=== PATIENT | female | born 1990 | race Caucasian/White ===

== ENCOUNTER 2021-11-17 04:16 | Emergency (ER) | payer BC, OTHER ==
[~2021-11-17] VITALS: Ht 162 cm; Wt 108.0 kg
[2021-11-17 04:30] VITALS: BP 95/68
--- OUTSIDE RECORDS SUMMARY | 2021-11-17 04:36 | XMS REPORT | Clinical Summary ---
Author Author [facility] Organization [facility] Address Unknown Phone Unavailable Care Team Providers Care Manual Winder Name Role Phone Brien Villalobos MD PCP Allergies Comments Active Allergy Reactions Severity Noted Date Other reaction(s): rash, hives Amoxicillin-Pot Not specified 10/11/2013 Clavulanate Cefaclor Hives 10/12/2013 Cefpodoxime Hives 10/12/2013 Other reaction(s): rash, hives Cephalexin 08/06/2020 Chlorothiazide Hives 10/12/2013 Sulfa (Sulfonamide Diarrhea, High 03/04/2012 Antibiotics) Hives Other reaction(s): rash, hives Sulfamethoxazole-Trimetho Hives 10/12/2013 prim Medications End Date Status Medication Sig Dispensed Refills Start Date Active levothyroxine (SYNTHROID, TAKE 1 TABLET 90 tablet 1 LEVOTHROID) 75 MCG tablet BY MOUTH 9 DAILY Active sertraline (ZOLOFT) 50 mg T1TD 30 tablet 1 tablet 0 Active docusate sodium (COLACE) Take 1 60 capsule 0 1 100 MG capsule (100 1 capsuleIndications: mg total) by constipation mouth 2 (two) times a day. to prevent constipation Active meloxicam (MOBIC) 7.5 MG Take 1 tablet 30 tablet 0 tablet (7.5 mg 1 total) by mouth daily. to help with pain and swelling after surgery Active ergocalciferol (VITAMIN Take 1 4 capsule 0 D2) 1,250 mcg (50,000 capsule 1 unit) capsuleIndications: (50,000 Units vitamin D deficiency total) by mouth weekly. Active ascorbic acid (VITAMIN C) Take 1 tablet 60 tablet 0 500 mg tablet (500 mg 1 total) by mouth daily. Active metoclopramide (REGLAN) Take 1 tablet 40 tablet 0 10 MG tablet (10 mg total) 1 by mouth 4 (four) times a day as needed (for post-operativ e nausea). 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 Active buPROPion (WELLBUTRIN XL) 1 tablet in 0 300 MG XL 24 hr tablet the morning Active fluconazole (DIFLUCAN) Take 1 tablet 0 01/25/ 02 150 MG tablet by mouth. 1 Active trazodone (DESYREL) 50 MG 1 tablet at 0 01/07 tablet bedtime as 1 needed Active tiZANidine (ZANAFLEX) 4 Take 1 tablet 40 tablet 0 MG tablet (4 mg total) 2 by mouth every 6 (six) hours as needed. Active gabapentin (NEURONTIN) Take 1 30 capsule 0 100 MG capsule (100 2 capsuleIndications: mg total) by postoperative acute pain mouth at bedtime. to help with nerve pain after surgery Active HYDROcodone-acetaminophen Take 1 tablet 40 tablet 0 (NORCO) 5-325 mg per by mouth 2 tabletIndications: every 4 Post-op pain (four) hours as needed for pain. Max Daily Dose: 6 tablets 10/22/2021 Discontinued (Reorder) tiZANidine (ZANAFLEX) 4 Take 1 tablet 40 tablet 0 MG tablet (4 mg total) 1 by mouth every 6 (six) hours as needed. 11/12/2021 Discontinued (Reorder) HYDROcodone-acetaminophen Take 1-2 40 tablet 0 (NORCO) 5-325 mg per tablets by 1 tabletIndications: mouth every 4 Post-op pain (four) hours as needed for pain. Max Daily Dose: 12 tablets 11/12/2021 Discontinued (Reorder) tiZANidine (ZANAFLEX) 4 Take 1 tablet 40 tablet 0 MG tablet (4 mg total) 1 by mouth every 6 (six) hours as needed. 11/12/2021 Discontinued (Reorder) gabapentin (NEURONTIN) Take 1 14 capsule 0 100 MG capsule (100 1 capsuleIndications: mg total) by postoperative acute pain mouth at bedtime. 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 Resolved Problems Problem Noted Date Resolved Date 03/08/2017 02/16/2018 Encounters Care Team Description Date Type Specialty Kamila Colmenares PA-C Post-op pain (Primary Dx) 11/12/2021 Office Visit Orthopedic Surgery Kamila Colmenares PA-C Medication Refill 11/12/2021 Refill Orthopedic Surgery Titus Benítez MD 11/05/2021 Documentation Orthopedic Surgery Titus Benítez MD 11/05/2021 Telephone Orthopedic Surgery Titus Benítez MD 10/28/2021 Outside Surgery Orthopedic Surgery Titus Benítez MD 10/28/2021 Documentation Orthopedic Surgery Emmie Chen, CLINIC PHYSICIAN Medication Refill 10/22/2021 Refill Orthopedic Surgery Emmie Chen CLINIC PHYSICIAN post op medications 10/22/2021 Telephone Orthopedic Surgery Titus Benítez MD Osteoarthritis of right ankle and foot ( Primary Dx); Right ankle pain, unspecified chronicity 09/03/2021 Office Visit Orthopedic Surgery Titus Benítez MD 09/02/2021 Telephone Orthopedic Surgery from Last 3 Months Immunizations Name Administration Dates Next Due Influenza QIV (IM) 08/19/2019 Influenza, seasonal, 10/12/2013 injectable, preservatie free (IIV3). 15 = Influenza TIV Social History Date Tobacco Use Types Packs/Day Years Used Never Smoker Smokeless Tobacco: Never Used Tobacco Cessation: Counseling Given: No Comments Alcohol Use Standard Drinks/Week social Yes 0 (1 standard drink = 0.6 o z pure alcohol) Alcohol Habits Answer Date Recorded How often do you have a drink containing alcohol? No t asked How many drinks containing alcohol do you have on No t asked a typical day when you are drinking? How often do you have six or more drinks on one Not asked occasion? Comment: social 12/31/2017 Sex Assigned at Date Recorded Not on file Last Filed Vital Signs Reading Time Taken Comments Vital Sign 122/78 09/23/2019 1:18 PM TERMITE EXTERMINATOR HELPER Blood Pressure 101 04/30/2021 9:53 AM CDT Pulse 36.3 C (97.3 F) 11/12/2021 11:34 AM TERMITE EXTERMINATOR HELPER Temperature 16 09/03/2021 3:07 PM CDT Respiratory Rate 98% 04/30/2021 9:53 AM CDT Oxygen Saturation - - Inhaled Oxygen Concentration 111.6 kg (246 lb) 11/12/2021 11:34 AM TERMITE EXTERMINATOR HELPER Weight 162.6 cm (5' 4") 11/12/2021 11:34 AM TERMITE EXTERMINATOR HELPER Height 42.23 11/12/2021 11:34 AM TERMITE EXTERMINATOR HELPER Body Mass Index Plan of Treatment Care Team Description Date Type Specialty Titus Benítez MD [address] [facility] [address] [place] [address] 11/27/2021 Office Visit Orthopedic Surgery Health Maintenance Due Date Last Done Comments Td/Tdap# 1990 COVID-19 Vaccine (1) 1993 Cervical Cancer Screening 01/09/2020 01/08/2017 via Pap Smear (Previously Completed at Different Location) Influenza Vaccine (#1) 2021 08/19/2019, 10/12/2013 Pneumococcal Vaccine: Aged Out No longer eligib le based on patient's age to Pediatrics (0 to 5 Years) complete this topic and At-Risk Patients (6 to 64 Years) Procedures Comments Procedure Name Priority Date/Time Associated Diag nosis WALKER BOOT TALL OR SHORT Routine 11/12/2021 Post -op pain 12:33 PM TERMITE EXTERMINATOR HELPER LAB SUMMARY 10/30/2021 3:00 PM TERMITE EXTERMINATOR HELPER CT ANKLE WO CONTRAST Routine 08/24/2021 Osteoarth ritis of right RIGHT 12:37 PM CDT ankle and foot Right ankle pain, unspecified chronicity from Last 3 Months Results * Ankle Walker / Achilles Boot [id number] (11/12/2021 12:33 PM TERMITE EXTERMINATOR HELPER) Retail Patient Pay? * LAB SUMMARY (10/30/2021 3:00 PM TERMITE EXTERMINATOR HELPER) Narrative 10/30/2021 3:00 PM TERMITE EXTERMINATOR HELPER Ordered by an unspecified provider. * CT Ankle wo contrast right (08/24/2021 12:37 PM CDT) [facility] RIS JAMES CONTRAST TYPE Modality Anatomical Region Laterality Computed Tomography Ankle Specimen Narrative Performing Organization Address City/State/ZIP Code P dilan Number [place] from Last 3 Months Insurance Type Payer Benefit Subscriber ID Effective Phone Address Plan / Dates Group [facility] OUT OF [id number] 2020-P [address] [facility] [id number] [place] [address] Advance Directives For more information, please contact: [phone] Patient Obiee Consultant Explanation Type Date Recorded Advance Directives and Living Will Power of Competency Evaluated Nurse Aide Health Care Directive Care Teams Start Date End Date Manual Winder Relationship Specialty 09/01/17 Brien Villalobos MD PCP - General Family Medicine
--- OUTSIDE RECORDS SUMMARY | 2021-11-17 04:36 | XMS REPORT | Encounter Summary ---
Author Author [facility] Organization [facility] Address Unknown Phone Unavailable Care Team Providers Care Labourers Name Role Phone Brien Villalobos MD PCP Encounter Details Care Team Description Date Type Department Titus Benítez MD [address] [facility] [address] [facility] [place], [place] [id number] 10/28/2021 Documentation [facility] [address] [facility] [address] [facility] [place] [address] Social History Date Tobacco Use Types Packs/Day Years Used Never Smoker Smokeless Tobacco: Never Used Comments Alcohol Use Standard Drinks/Week social Yes [...] Assigned at Date Recorded Not on file documented as of this encounter Plan of Treatment Care Team Description Date Type Specialty Titus Benítez MD [address] [facility] [address] [facility] [place] [address] 11/27/2021 Office Visit Orthopedic Surgery documented as of this encounter Visit Diagnoses Not on filedocumented in this encounter Care Teams Start Date End Date Labourers Relationship Specialty 09/01/17 Brien Villalobos MD PCP - General Family Medicine documented as of this encounter
--- OUTSIDE RECORDS SUMMARY | 2021-11-17 04:36 | XMS REPORT | Encounter Summary ---
Author Author [facility] Organization [facility] Address Unknown Phone Unavailable Care Team Providers Care Lockstitch Coat Joiner Name Role Phone Brien Villalobos MD PCP Reason for Visit * Surgical (Routine) - Closed Diagnoses / Procedures Referred By Contact Referred To Conta ct Specialty Diagnoses Osteoarthritis of right ankle and foot Procedures Referral to Outside Surgery TN ANKLE SCOPE,PART SYNOVECTOMY TN ANKLE SCOPE,PART DEBRIDEMENT TN HALLUX RIGIDUS W/CHEILECTOMY 1ST MP JT W/O IMPLT TN BONE BIOPSY,TROCAR/NEEDLE SUPERF TN REMV TALUS/HEEL BENIGN BONE LESN TN GASTROCNEMIUS RECESSION Titus Benítez MD [address] [facility] [address] [place] [address] OF SERV[address] [place] [phone] Referral ID Status Reason Start Date Expiration Visits Vi sits Date Requested Authorized [id number] Closed 09/03/2021 03/04/2022 1 1 Encounter Details Care Team Description Date Type Department Titus Benítez MD [address] [facility] [address] [place] [address] 10/28/2021 Outside Surgery [facility] [address] [facility] [address] [place] [address] Social History Date Tobacco Use Types Packs/Day [...] Type Specialty Titus Benítez MD [address] [facility] [address] [place] [address] 11/27/2021 Office Visit Orthopedic Surgery documented as of this encounter Visit Diagnoses Not on filedocumented in this encounter Care Teams Start Date End Date Lockstitch Coat Joiner Relationship Specialty 09/01/17 Brien Villalobos MD PCP - General Family Medicine documented as of this encounter
--- OUTSIDE RECORDS SUMMARY | 2021-11-17 04:36 | XMS REPORT | Encounter Summary ---
Author Author [facility] Organization [facility] Address Unknown Phone Unavailable Care Team Providers Care Inspector Machine Parts Name Role Phone Brien Villalobos MD PCP Reason for Visit * Reason Onset Date Comments Medication Refill 11/12/2021 Encounter Details Care Team Description Date Type Department Kamila Colmenares PA-C [address] [facility] [address] [place] [address] Medication Refill 11/12/2021 Refill [facility] [address] [facility] [address] [place] [address] Social History Date Tobacco Use [...] on file documented as of this encounter Miscellaneous Notes * Telephone Encounter - Kamila Colmenares PA-C - 11/12/2021 12:42 PM SHOVEL LOG LOADER OPERATOR Requested refill today at appointment. EL LOG LOADER OPERATOR documented in this encounter Plan of Treatment Care Team Description Date Type Specialty Titus Benítez MD [address] [facility] [address] [place] [address] 11/27/2021 Office Visit Orthopedic Surgery documented as of this encounter Visit Diagnoses Diagnosis Post-op pain Other acute postoperative pain documented in this encounter Care Teams Start Date End Date Inspector Machine Parts Relationship Specialty 09/01/17 Brien Villalobos MD PCP - General Family Medicine documented as of this encounter
--- OUTSIDE RECORDS SUMMARY | 2021-11-17 04:36 | XMS REPORT | Encounter Summary ---
Author Author [facility] Organization [facility] Address Unknown Phone Unavailable Care Team Providers Care Carpenter/Labor Name Role Phone Brien Villalobos MD PCP Reason for Visit * Reason Onset Date Comments Medication Refill 10/22/2021 Encounter Details Care Team Description Date Type Department Emmie Chen, LIZETTE [address] [place] [address] Medication Refill 10/22/2021 Refill [facility] [address] [facility] [address] [place] [address] Social History Date Tobacco Use [...] Type Specialty Titus Benítez MD [address] [facility] [address] [place] [address] 11/27/2021 Office Visit Orthopedic Surgery documented as of this encounter Visit Diagnoses Diagnosis Post-op pain - Primary Other acute postoperative pain documented in this encounter Care Teams Start Date End Date Carpenter/Labor Relationship Specialty 09/01/17 Brien Villalobos MD PCP - General Family Medicine documented as of this encounter
--- OUTSIDE RECORDS SUMMARY | 2021-11-17 04:36 | XMS REPORT | Encounter Summary ---
Author Author [facility] Organization [facility] Address Unknown Phone Unavailable Care Team Providers Care Divinity Teacher Name Role Phone Brien Villalobos MD PCP Reason for Visit * Reason Onset Date Comments post op medications 10/22/2021 Encounter Details Care Team Description Date Type Department Emmie Chen FNP [address] [place] [address] post op medications 10/22/2021 [facility] [address] [facility] [address] [place] [address] Social History Date Tobacco Use [...] encounter Miscellaneous Notes * Telephone Encounter - LIZETTE Winkler - 10/22/2021 11:29 AM STRAIGHTEDGE MACHINE OPERATOR HELPER Patient's post-op medications sent into [facility] - [address] [facility] [address] Called to inform pt medications were sent to pharmacy above. Xarelot 10 mg once daily for dvt ppx (BMI 42.23 kg) - sent in Colace - sent in Gabapentin - sent in Meloxicam - sent in Vitamin D - sent in Vitamin C - sent in Reglan - sent in Tizanidine - refill Hydrocodone rx will be sent to Dr. Benítez to electronically sign in an alternate encounter. Pt expressed understanding and agrees to plan. All questions answered. IGHTEDGE MACHINE OPERATOR HELPER documented in this encounter Plan of Treatment Care Team Description Date Type Specialty Titus Benítez MD [address] [facility] [address] [place] [address] 11/27/2021 Office Visit Orthopedic Surgery documented as of this encounter Visit Diagnoses Not on filedocumented in this encounter Care Teams Start Date End Date Divinity Teacher Relationship Specialty 09/01/17 Brien Villalobos MD PCP - General Family Medicine documented as of this encounter
--- OUTSIDE RECORDS SUMMARY | 2021-11-17 04:36 | XMS REPORT | Encounter Summary ---
Author Author [facility] Organization [facility] Address Unknown Phone Unavailable Care Team Providers Care Customer Marketing Manager Name Role Phone Brien Villalobos MD PCP Encounter Details Care Team Description Date Type Department Titus Benítez MD [address] [facility] [address] [place] [address] 11/05/2021 Telephone [facility] [address] [facility] [address] [place] [address] Social History Date Tobacco Use [...] encounter Miscellaneous Notes * Telephone Encounter - Alex Gastelum, AT - 11/05/2021 11:18 AM RN BARIATRIC I called and spoke with the patient about her post-op splint. She stated that as her swelling has decreased her splint has become loose and is rubbing over her incisions. I recommended that she put ice over the areas of discomfort to reduce immediate pain, and to tighten the alyx wraps around the splint to see if that d ecreases any friction around her incisions. I explained that she should not beba ve any of the cotton wrap, or the plaster part of the splint. She was understand ing of this and appreciated the return call. BARIATRIC documented in this encounter Plan of Treatment Care Team Description Date Type Specialty Titus Benítez MD [address] [facility] [address] [address] [place] [address] 11/27/2021 Office Visit Orthopedic Surgery documented as of this encounter Visit Diagnoses Not on filedocumented in this encounter Care Teams Start Date End Date Customer Marketing Manager Relationship Specialty 09/01/17 Brien Villalobos MD PCP - General Family Medicine documented as of this encounter
--- OUTSIDE RECORDS SUMMARY | 2021-11-17 04:36 | XMS REPORT | Encounter Summary ---
Author Author [facility] Organization [facility] Address Unknown Phone Unavailable Care Team Providers Care Yarn Weight And Strength Tester Name Role Phone Brien Villalobos MD PCP Reason for Referral * Physical Therapy (Routine) - Closed Diagnoses / Procedures Referred By Contact Referred To Conta ct Specialty Diagnoses Post-op pain Kamila Colmenares PA-C [address] [facility] [address] [place] [address] Physical Therapy Referral ID Status Reason Start Date Expiration Visits Vi sits Date Requested Authorized [id number] Closed Specialty Services 11/12/2021 05/13/2022 1 1 Required TOLOGIC TECHNICIAN OPERATOR/ANALYST Reason for Visit * Reason Comments Post Op Exam Encounter Details Care Team Description Date Type Department Kamila Colmenares PA-C [address] [employer] [facility] [address] [place] [address] Post-op pain (Primary Dx) 11/12/2021 Office Visit [facility] [address] [facility] [address] [place] [address] Social History Date Tobacco Use [...] on file documented as of this encounter Last Filed Vital Signs Reading Time Taken Comments Vital Sign - - Blood Pressure - - Pulse 36.3 C (97.3 F) 11/12/2021 11:34 AM CRYPTOLOGIC TECHNICIAN OPERATOR/ANALYST Temperature - - Respiratory Rate - - Oxygen Saturation - - Inhaled Oxygen Concentration 111.6 kg (246 lb) 11/12/2021 11:34 AM CRYPTOLOGIC TECHNICIAN OPERATOR/ANALYST Weight 162.6 cm (5' 4") 11/12/2021 11:34 AM CRYPTOLOGIC TECHNICIAN OPERATOR/ANALYST Height 42.23 11/12/2021 11:34 AM CRYPTOLOGIC TECHNICIAN OPERATOR/ANALYST Body Mass Index documented in this encounter Progress Notes * Kamila Colmenares PA-C - 11/12/2021 11:00 AM CRYPTOLOGIC TECHNICIAN OPERATOR/ANALYST Name: Lynda Hoover : 1990 Primary Care Provider: Brien Villalobos MD Appointment Type: Post-Op Chief Complaint Patient presents with Right Ankle - Post Op Exam We are now 15 days from surgery: right ankle arthroscopy, ankle cheilectomy maria isabel r biopsy with lita on 10/28/2021. HPI: Patient presents to the office today for a post-op visit. Since surgery, sh ruslan has remained NWB on the RLE with use of knee scooter. For DVT ppx, Xarelto chavez s been continued. She reports pain has been controlled, but notes she is out of pain medications. Vital Signs: Temp 36.3 C (97.3 F) (Tympanic) | Ht 1.626 m (5' 4") | Wt 111 .6 kg (246 lb) | BMI 42.23 kg/m Physical Exam: Skin: Visible skin is warm and dry without rashes. Incisions x 4 to the RLE (2x anterior ankle, 1x lateral ankle, 1x calf)) are approximated with nylon suture and amina intact. No erythema, warmth purulent drainage, or s/s of infection n oted. Ext: Neurovascular exam normal, [id number] bilaterally. Moderate soft-tiss ue swelling to the right foot and ankle MSK Exam - right lower extremity: Compartment of the leg is soft, non-tender, an d compressible; no signs of compartment syndrome; DP pulse 2+ with brisk cap ref ill to exposed toes; Sensation intact; patient able to wiggle toes without probl em; able to PF and DF ankle with minimal complaints of pain Pathology: Reviewed. Benign bone. No evidence of osteonecrosis of talus. Impression: 31 y.o. female s/p right ankle arthroscopy, ankle cheilectomy talar biopsy with lita doing well Plan: Every other suture removed today. Discussed every other day dressing castillo es, with antibiotic cream, 4x4 gauze, and NYDIA wrap. Instructed to keep incisions dry. Pt was instructed to start to be PWB on the RLE in boot and advance with therapy. PT order written today. Encouraged ice and elevation of right extremity . Instructed to continue Xarelto for dvt ppx. Instructed to continue other presc ribed medications, including tizanidine (refilled) and gabapentin (refilled). Re fill on hydrocodone sent to Dr. Benítez. Work note written for sit-down duties. Re commend working with therapy before she starts to drive.At next visit, anticipat e removal of remaining suture and continuing to advance WB status. Return in abo ut 2 weeks (around 11/26/2021) for post-op #[address] Titus Benítez. DME: Ms. Anderson requires boot due to recent surgery. The boot will aid in ambul ation, help incisions to heal, and help to decrease pain. Encounter Diagnosis: SNOMED CT(R) 1. Post-op pain POSTOPERATIVE PAIN Ambulatory referral to Physical Therapy Ankle Walker / Achilles Boot [id number] RIVKA Faustin PA-C Physician Quality Assurance Group Leader [facility] TOLOGIC TECHNICIAN OPERATOR/ANALYST documented in this encounter Plan of Treatment Care Team Description Date Type Specialty Titus Benítez MD [address] [facility] [address] [place] [address] 11/27/2021 Office Visit Orthopedic Surgery Order Schedule Name Type Priority Associated Diag noses 1 Occurrences starting 11/12/2021 until 05/12/2022 Ambulatory referral to Outpatient Routine Post-op pain Physical Therapy Referral documented as of this encounter Procedures Comments Procedure Name Priority Date/Time Associated Diag nosis WALKER BOOT TALL OR SHORT Routine 11/12/2021 Post -op pain 12:33 PM CRYPTOLOGIC TECHNICIAN OPERATOR/ANALYST documented in this encounter Visit Diagnoses Diagnosis Post-op pain - Primary Other acute postoperative pain documented in this encounter Care Teams Start Date End Date Yarn Weight And Strength Tester Relationship Specialty 09/01/17 Brien Villalobos MD PCP - General Family Medicine documented as of this encounter
[2021-11-17] MEDS ORDERED: DICYCLOMINE 10 MG/ML (BENTYL) 2 ML AMP IM STA (04:44)
[2021-11-17] MEDS ORDERED: ONDANSETRON 4 MG/2 ML (SDV) Z0FRAN IVP STA (04:44)
[2021-11-17] MEDS ORDERED: PANTOPRAZOLE 40 MG (PROTONIX) VIAL IV STA (04:44)
[2021-11-17] MEDS ORDERED: NS IV 1000 ML 1,000 ML IV STA ×2 (04:44→05:40)
[2021-11-17 05:01] LABS: EOSINOPHILS % (AUTO) 1 % (0-10); HEMATOCRIT 52 % (35-52); HEMOGLOBIN 17.7 g/dL (11.5-16.0); LYMPHOCYTES % (AUTO) 18 % (12-44); MEAN CORPUSCULAR HEMOGLOBIN 29 pg (25-34); MEAN CORPUSCULAR HGB CONC 34 g/dL (32-36); MEAN CORPUSCULAR VOLUME 85 fL (80-99); MEAN PLATELET VOLUME 8.8 fL (9.0-12.2); MONOCYTES % (AUTO) 3 % (0-12); NEUTROPHILS % (AUTO) 78 % (42-75); PLATELET COUNT 521 10^3/uL (130-400); WHITE BLOOD COUNT 19.7 10^3/uL (4.3-11.0)
[2021-11-17 05:02] LABS: BASOPHILS % (AUTO) 0 % (0-10); EOSINOPHILS # (AUTO) 0.2 10^3/uL (0.0-0.3); LYMPHOCYTES # (AUTO) 3.5 X 10^3 (1.0-4.0); MONOCYTES # (AUTO) 0.6 X 10^3 (0.0-1.0); NEUTROPHILS # (AUTO) 15.3 X 10^3 (1.8-7.8)
[2021-11-17 05:15] LABS: BACTERIA,URINE MODERATE /HPF; BILIRUBIN,URINE NEGATIVE (NEGATIVE); CLARITY,URINE SLIGHTLY CLOUDY; COLOR,URINE YELLOW; GLUCOSE, URINE (UA) NEGATIVE (NEGATIVE); KETONES,URINE NEGATIVE (NEGATIVE); LEUKOCYTE ESTERASE ,URINE NEGATIVE (NEGATIVE); NITRITE,URINE NEGATIVE (NEGATIVE); PH,URINE 5.5 (5-9); PROTEIN,URINE 2+ (NEGATIVE); RBC,URINE >100 /HPF
[2021-11-17 05:16] LABS: HYALINE CASTS, URINE 25-50 /LPF
[2021-11-17 05:17] LABS: ALBUMIN 4.2 GM/DL (3.2-4.5); BILIRUBIN,TOTAL 0.3 MG/DL (0.1-1.0); CALCIUM 9.3 MG/DL (8.5-10.1); CREATININE SERUM 1.17 MG/DL (0.60-1.30); POTASSIUM 3.8 MMOL/L (3.6-5.0)
--- NOTE | 2021-11-17 05:25 | Diagnostic Imaging Report ---
PROCEDURE: CT abdomen and pelvis without contrast. TECHNIQUE: Multiple contiguous axial images were obtained through the abdomen and pelvis without the use of intravenous contrast. Auto Exposure Controls were utilized during the CT exam to meet ALARA standards for radiation dose reduction. INDICATION: Abdominal pain. Nausea. COMPARISON: None. FINDINGS: The heart is unremarkable. The lung bases are clear. There is atrophy of the left kidney. The right kidney is unremarkable without evidence of hydronephrosis or renal calculi. No perinephric fat stranding is seen. The urinary bladder is decompressed. The liver, spleen, pancreas, and adrenal glands have a normal appearance. The gallbladder is unremarkable. There is no pathologically enlarged mesenteric or retroperitoneal adenopathy. The bowel loops are nondilated. The appendix is visualized in the right lower quadrant and has a normal appearance. There is no free fluid or free air. No acute osseous abnormalities. There is no free air, loculated collection, or adenopathy in the pelvis. IMPRESSION: 1. No acute abnormalities in the abdomen and pelvis. 2. Chronic atrophy of the left kidney. The right kidney has a normal appearance. Dictated by: Dictated on workstation # [id number]
[2021-11-17 05:31] LABS: EOSINOPHILS % (MANUAL) 3 %; LYMPHOCYTES % (MANUAL) 18 %; MONOCYTES % (MANUAL) 2 %; NEUTROPHILS % (MANUAL) 77 %
[2021-11-17 05:32] LABS: TOXIC GRANULATION/VACUOLAZATIO 4+
--- NOTE | 2021-11-17 05:33 | ED General ---
General Chief Complaint: Abdominal/GI Problems Stated Complaint: ABDONINAL PAIN Nursing Triage Note: Pt c/o intermittent abd pain x few days. Pt reports she had bilateral hand redness/tingling and breaks out in hives when pain comes. C/o n/d. Pt denies urinary symptoms, fever, cough, or SOA. History of Present Illness Date Seen by Provider: Nov 17, 2021 Time Seen by Provider: 04:17 Initial Comments 31-year-old female presenting with complaints of intermittent abdominal pain over the last few weeks. She thought that it might be related to an allergy to some food or her something. She had more severe pain last night and was having redness and tingling on her arms and hands. He was developing hives on her hands as well. She denies vomiting but does have nausea and diarrhea when the pain comes on. She denies any pain with urination, fever, chills, cough, shortness of breath, sore throat. She has not had any blood in her stool. She has an appointment to see her regular doctor next week about these recurrent symptoms but with her pain being more severe tonight and feeling lightheaded and dizzy she called EMS to bring her to the ED. Her primary care doctor is Dr. Brien Villalobos in [facility] and she uses available for her pharmacies but EMS brought her here to [place] where she had not been seen previously Severity: Severe Associated Systoms: No Chest Pain, No Cough, No Diaphoresis, No Fever/Chills, No Headaches, No Loss of Appetite, No Malaise; Nausea/Vomiting (nausea but no vomiting), Rash (redness on her arms and hands); No Seizure, No Shortness of Air, No Syncope, No Weakness Allergies and Home Medications Allergies Coded Allergies: amoxicillin (Verified Allergy, Unknown, 11/17/21) cefaclor (Verified Allergy, Unknown, 11/17/21) chlorothiazide (Verified Allergy, Unknown, 11/17/21) clavulanic acid (Verified Allergy, Unknown, 11/17/21) sulfamethoxazole (Verified Allergy, Unknown, 11/17/21) trimethoprim (Verified Allergy, Unknown, 11/17/21) Patient Home Medication List Home Medication List Reviewed: Yes Dicyclomine HCl (Dicyclomine HCl) 20 Mg Tablet, 20 MG PO Q6H PRN for abdominal cramping/pain Prescribed by: HARISH MCCONNELL on 11/17/21 0619 Review of Systems Review of Systems Constitutional: No chills, No fever EENTM: no symptoms reported Respiratory: no symptoms reported Cardiovascular: no symptoms reported Gastrointestinal: see HPI, diarrhea, nausea Genitourinary: No dysuria : No LMP: Nov 16, 2021 Musculoskeletal: joint pain (recent ankle surgery) Skin: see HPI, change in color, rash Psychiatric/Neurological: Anxiety Past Fbnqltv-Yeqhuw-Dyxook Hx Patient Social History Tobacco Use?: No Use of E-Cig and/or Vaping dev: No Substance use?: No Alcohol Use?: No Pt feels they are or have been: No Immunizations Up To Date Influenza Vaccine Up-to-Date: No; Not Current First/Initial COVID19 Vaccinat: denies Past Medical History Surgeries: Yes Orthopedic Last Menstrual Period: Nov 17, 2021 Physical Exam Vital Signs Vital Signs - First Documented 11/17/21 04:30 Temp 36.1 Pulse 103 Resp 17 B/P (MAP) 95/68 (77) Pulse Ox 99 O2 Delivery Room Air Capillary Refill : Less Than 3 Seconds Height, Weight, BMI Height: '" Weight: lbs. oz. kg; 41.00 BMI Method: General Appearance: Anxious, Obese HEENT: PERRL/EOMI, Pharynx Normal Neck: Full Range of Motion, Normal Inspection, Non Tender, Supple Respiratory: Chest Non Tender, Lungs Clear, Normal Breath Sounds, No Accessory Muscle Use, No Respiratory Distress Cardiovascular: Normal Peripheral Pulses, Tachycardia Gastrointestinal: Normal Bowel Sounds, No Pulsatile Mass, Soft, Tenderness (epigastric) Rectal: Deferred Extremity: Normal Capillary Refill Neurologic/Psychiatric: Alert, Oriented x3 Skin: Warm/Dry, Erythema (arms and hands) Progress/Results/Core Measures Suspected Sepsis SIRS Temperature: Pulse: 103 Respiratory Rate: 17 Laboratory Tests 11/17/21 04:38: White Blood Count 19.7H Blood Pressure 95 /68 Mean: 77 Laboratory Tests 11/17/21 04:38: Creatinine 1.17, Platelet Count 521H, Total Bilirubin 0.3 Results/Orders Lab Results Laboratory Tests Test 11/17/21 04:38 11/17/21 05:05 Range/Units White Blood Count 19.7 H 4.3-11.0 10^3/uL Red Blood Count 6.07 H 3.80-5.11 10^6/uL Hemoglobin 17.7 H 11.5-16.0 g/dL Hematocrit 52 35-52 % Mean Corpuscular Volume 85 80-99 fL Mean Corpuscular Hemoglobin 29 25-34 pg Mean Corpuscular Hemoglobin Concent 34 32-36 g/dL Red Cell Distribution Width 13.1 10.0-14.5 % Platelet Count 521 H 130-400 10^3/uL Mean Platelet Volume 8.8 L 9.0-12.2 fL Neutrophils (%) (Auto) 78 H 42-75 % Lymphocytes (%) (Auto) 18 12-44 % Monocytes (%) (Auto) 3 0-12 % Eosinophils (%) (Auto) 1 0-10 % Basophils (%) (Auto) 0 0-10 % Neutrophils # (Auto) 15.3 H 1.8-7.8 X 10^3 Lymphocytes # (Auto) 3.5 1.0-4.0 X 10^3 Monocytes # (Auto) 0.6 0.0-1.0 X 10^3 Eosinophils # (Auto) 0.2 0.0-0.3 10^3/uL Basophils # (Auto) 0.0 0.0-0.1 10^3/uL Neutrophils % (Manual) 77 % Lymphocytes % (Manual) 18 % Monocytes % (Manual) 2 % Eosinophils % (Manual) 3 % Toxic Granulation 4+ Sodium Level 142 135-145 MMOL/L Potassium Level 3.8 3.6-5.0 MMOL/L Chloride Level 104 98-107 MMOL/L Carbon Dioxide Level 22 21-32 MMOL/L Anion Gap 16 H 5-14 MMOL/L Blood Urea Nitrogen 21 H 7-18 MG/DL Creatinine 1.17 0.60-1.30 MG/DL Estimat Glomerular Filtration Rate 53 BUN/Creatinine Ratio 18 Glucose Level 228 H 70-105 MG/DL Calcium Level 9.3 8.5-10.1 MG/DL Corrected Calcium 9.1 8.5-10.1 MG/DL Total Bilirubin 0.3 0.1-1.0 MG/DL Aspartate Amino Transf (AST/SGOT) 13 5-34 U/L Alanine Aminotransferase (ALT/SGPT) 8 0-55 U/L Alkaline Phosphatase 92 40-136 U/L Total Protein 7.0 6.4-8.2 GM/DL Albumin 4.2 3.2-4.5 GM/DL Lipase 25 8-78 U/L Serum Test, Qualitative NEGATIVE NEGATIVE Urine Color YELLOW Urine Clarity SLIGHTLY CLOUDY Urine pH 5.5 5-9 Urine Specific [place] >=1.030 1.016-1.022 Urine Protein 2+ H NEGATIVE Urine Glucose (UA) NEGATIVE NEGATIVE Urine Ketones NEGATIVE NEGATIVE Urine Nitrite NEGATIVE NEGATIVE Urine Bilirubin NEGATIVE NEGATIVE Urine Urobilinogen 0.2 < = 1.0 MG/DL Urine Leukocyte Esterase NEGATIVE NEGATIVE Urine RBC (Auto) 3+ H NEGATIVE Urine RBC >100 H /HPF Urine WBC NONE /HPF Urine Squamous Epithelial Cells 2-5 /HPF Urine Crystals NONE /LPF Urine Bacteria MODERATE H /HPF Urine Casts PRESENT /LPF Urine Hyaline Casts 25-50 H /LPF Urine Granular Casts 5-10 H /LPF Urine Mucus LARGE H /LPF Urine Culture Indicated YES My Orders Orders - HARISH MCCONNELL MD Comprehensive Metabolic Panel (11/17/21 04:44) Lipase (11/17/21 04:44) Ua Culture If Indicated (11/17/21 04:44) Ed Iv/Invasive Line Start (11/17/21 04:44) Cbc With Automated Diff (11/17/21 04:44) Ct Abdomen/Pelvis Wo (11/17/21 04:44) Ns Iv 1000 Ml (Sodium Chloride 0.9%) (11/17/21 04:44) Ondansetron Injection (Zofran Injectio (11/17/21 04:44) Pantoprazole Injection (Protonix Injecti (11/17/21 04:44) Dicyclomine Injection (Bentyl Injection) (11/17/21 04:44) Hcg,Qualitative Serum (11/17/21 04:44) Manual Differential (11/17/21 04:38) Urine Culture (11/17/21 05:05) Rx-Dicyclomine Capsule (Rx-Bentyl Capsul (11/17/21 06:30) Hydrocodone/Apap 5/325 Tablet (Lortab 5 (11/17/21 06:17) Vital Signs/I&O 11/17/21 11/17/21 04:30 06:00 Temp 36.1 Pulse 103 99 Resp 17 17 B/P (MAP) 95/68 (77) 116/78 Pulse Ox 99 98 O2 Delivery Room Air Room Air Capillary Refill : Less Than 3 Seconds Blood Pressure Mean: 77 Progress Note #1: Progress Note Obtain basic labs with urinalysis. Order a test off of her serum. CT scan of the abdomen pelvis without contrast since she reports having kidney issues in the past. Give IV fluids for hydration, Zofran for nausea, Protonix for epigastric pain, Bentyl for abdominal cramping Progress Note #2: Progress Note Labs today show an elevated white blood cell count of 19.7. Her chemistry panel has an elevated glucose but otherwise no acute significant abnormality. test was negative. Urinalysis had some blood and bacteria and a culture will be obtained. Progress Note #3: Progress Note CT scan head did not show any acute significant abnormality. Her symptoms were improved with treatment in the ED. Will discuss treating with antibiotic vs waiting on urine culture for urinalysis showing bacteria and blood. Have her follow a bland diet and check with clinic as scheduled. May need GI referral Progress Note #4: Progress Note Patient wanted to wait in terms of the bacteria in her urine and see what the culture grew out. She was not having any symptoms of a UTI and its possible that the bacteria may just be contamination from the skin rather than a true bladder infection. If the culture and sensitivity shows that she requires an antibiotic will give her a call and let her know once that result is back. Otherwise patient was feeling better and reviewed results with patient and her spouse. Will discharge on dicyclomine for abdominal pain and cramping. She reports that she does have family members with celiac disease and irritable bowel. She may need to have testing done with a GI doctor or follow-up at least with her primary doctor. Diagnostic Imaging Diagonstic Imaging: CT Plain Films/CT/US/NM/MRI: abdomen, pelvis Comments NAME: [facility] REC#: [id number] PT STATUS: REG ER : 1990 PHYSICIAN: HARISH MCCONNELL MD ADMIT DATE: 11/17/21/ER FS Draft Date of Exam:11/17/21 CT ABDOMEN/PELVIS WO PROCEDURE: CT abdomen and pelvis without contrast. TECHNIQUE: Multiple contiguous axial images were obtained through the abdomen and pelvis without the use of intravenous contrast. Auto Exposure Controls were utilized during the CT exam to meet ALARA standards for radiation dose reduction. INDICATION: Abdominal pain. Nausea. COMPARISON: None. FINDINGS: The heart is unremarkable. The lung bases are clear. There is atrophy of the left kidney. The right kidney is unremarkable without evidence of hydronephrosis or renal calculi. No perinephric fat stranding is seen. The urinary bladder is decompressed. The liver, spleen, pancreas, and adrenal glands have a normal appearance. The gallbladder is unremarkable. There is no pathologically enlarged mesenteric or retroperitoneal adenopathy. The bowel loops are nondilated. The appendix is visualized in the right lower quadrant and has a normal appearance. There is no free fluid or free air. No acute osseous abnormalities. There is no free air, loculated collection, or adenopathy in the pelvis. IMPRESSION: 1. No acute abnormalities in the abdomen and pelvis. 2. Chronic atrophy of the left kidney. The right kidney has a normal appearance. Dictated on workstation # [id number] Dict: 11/17/21 0521 Trans: 11/17/21 0524 [facility] [id number] Interpreted by: HERON VALDEZ DO Electronically signed by: Reviewed: Reviewed by Me Departure Impression Primary Impression: Epigastric abdominal pain Additional Impressions: Diarrhea Qualified Codes: R19.7 - Diarrhea, unspecified Dehydration Bacteriuria Disposition: HOME, SELF-CARE Condition: Stable Departure-Patient Inst. Decision time for Depature: 06:18 Referrals: NO,LOCAL PHYSICIAN (PCP) Primary Care Physician Patient Instructions: Gastritis ED, Dehydration, Adult ED, Diarrhea, Adult ED, Abdominal Pain, Adult ED Add. Discharge Instructions: Keep your follow-up with Dr. Villalobos. Try following a low fat bland diet. Stay well hydrated and drink plenty of fluids. You could try the Dicyclomine (Bentyl) for abdominal pain and nausea if it recurs. All discharge instructions reviewed with patient and/or family. Voiced understanding. Scripts Dicyclomine HCl (Dicyclomine HCl) 20 Mg Tablet 20 MG PO Q6H PRN for abdominal cramping/pain for 7 Days, #28 TAB 0 Refills Prov: HARISH MCCONNELL MD 11/17/21 HARISH MCCONNELL MD Nov 17, 2021 05:33
[2021-11-17] MEDS ORDERED: HYDROcodone/APAP 5 MG/325 MG (LORTAB) TAB PO STA (06:17)
[2021-11-17] MEDS ORDERED: DICY20TA PO (06:19)
[2021-11-17] MEDS ORDERED: RX-DICYCLOMINE 10 MG (BENTYL) CAP PPK#4 PO PRN (06:30)
== END 2021-11-17 06:30 | disposition home or self-care (01) ==
LOC: ER FS 04:33
DX: R10.13 Epigastric pain (principal); R19.7 Diarrhea, unspecified; E86.0 Dehydration; R82.71 Bacteriuria; E66.9 Obesity, unspecified; Z68.41 Body mass index [BMI] 40.0-44.9, adult
CPT/HCPCS: 36415; 74176; 80053; 81000; 83690; 84703; 85007; 85027; 87088

== ENCOUNTER 2021-11-20 02:20 | Emergency (ER) | payer BC, OTHER ==
[~2021-11-20] VITALS: Ht 162 cm; Wt 154.0 kg
[~2021-11-20 02:20] MED LIST: DICY20TA PO
[2021-11-20 02:25] VITALS: BP 113/83
--- OUTSIDE RECORDS SUMMARY | 2021-11-20 02:25 | XMS REPORT | Encounter Summary ---
Author Author [facility] Organization [facility] Address Unknown Phone Unavailable Care Team Providers Care Green Marketer Name Role Phone Brien Villalobos MD PCP Encounter Details Care Team Description Date Type Department Titus Benítez MD [address] [facility] [address] [facility] [place], [place] [id number] 11/05/2021 Documentation [facility] [address] [facility] [address] [facility] [place] [address] Social History Date Tobacco Use Types Packs/Day [...] Type Specialty Titus Benítez MD [address] [address] [place] [address] 11/27/2021 Office Visit Orthopedic Surgery documented as of this encounter Visit Diagnoses Not on filedocumented in this encounter Care Teams Start Date End Date Green Marketer Relationship Specialty 09/01/17 Brien Villalobos MD PCP - General Family Medicine documented as of this encounter
--- OUTSIDE RECORDS SUMMARY | 2021-11-20 02:25 | XMS REPORT | Encounter Summary ---
Author Author [facility] Organization [facility] Address Unknown Phone Unavailable Care Team Providers Care Nonprofit Fundraiser Name Role Phone Brien Villalobos MD PCP Reason for Visit * Reason Onset Date Comments Medication Refill 11/12/2021 Encounter Details Care Team Description Date Type Department Kamila Colmenares PA-C [address] [facility] [address] [place] [address] Medication Refill 11/12/2021 Refill [facility] [address] [facility] [address] [place] [address] Social History Date Tobacco Use [...] Kamila Colmenares PA-C - 11/12/2021 12:42 PM JOURNEYMAN GLAZIER Requested refill today at appointment. NEYMAN GLAZIER documented in this encounter Plan of Treatment Care Team Description Date Type Specialty Titus Benítez MD [address] [facility] [address] [place] [address] 11/27/2021 Office Visit Orthopedic Surgery documented as of this encounter Visit Diagnoses Diagnosis Post-op pain Other acute postoperative pain documented in this encounter Care Teams Start Date End Date Nonprofit Fundraiser Relationship Specialty 09/01/17 Brien Villalobos MD PCP - General Family Medicine documented as of this encounter
--- OUTSIDE RECORDS SUMMARY | 2021-11-20 02:25 | XMS REPORT | Encounter Summary ---
Author Author [facility] Organization [facility] Address Unknown Phone Unavailable Care Team Providers Care Career Services Assistant Name Role Phone Brien Villalobos MD PCP Reason for Referral * Physical Therapy (Routine) - Closed Diagnoses / Procedures Referred By Contact Referred To Conta ct Specialty Diagnoses Post-op pain Kamila Colmenares PA-C [address] [facility] [address] [place] [address] Physical Therapy Referral ID Status Reason Start Date Expiration Visits Vi sits Date Requested Authorized [id number] Closed Specialty Services 11/12/2021 05/13/2022 1 1 Required LAINT ANALYST Reason for Visit * Reason Comments Post Op Exam Encounter Details Care Team Description Date Type Department Kamila Colmenares PA-C [address] [facility] [address] [place] [address] Post-op pain (Primary Dx) 11/12/2021 Office Visit [facility] [address] [facility] [address] [place] [address] Social History Date Tobacco Use [...] 36.3 C (97.3 F) 11/12/2021 11:34 AM COMPLAINT ANALYST Temperature - - Respiratory Rate - - Oxygen Saturation - - Inhaled Oxygen Concentration 111.6 kg (246 lb) 11/12/2021 11:34 AM COMPLAINT ANALYST Weight 162.6 cm (5' 4") 11/12/2021 11:34 AM COMPLAINT ANALYST Height 42.23 11/12/2021 11:34 AM COMPLAINT ANALYST Body Mass Index documented in this encounter Progress Notes * Kamila Colmenares PA-C - 11/12/2021 11:00 AM COMPLAINT ANALYST Name: Lynda Hoover : 1990 Primary Care [...] infection n oted. Ext: Neurovascular exam normal, [id number] bilaterally. Moderate soft-tiss ue swelling to the [...] Achilles Boot [id number] RIVKA Faustin PA-C Physician Estimating Engineer [facility] LAINT ANALYST documented in this encounter Plan of Treatment Care Team Description Date Type Specialty Titus Benítez MD [address] [facility] [address] [place] [address] 11/27/2021 Office Visit Orthopedic Surgery Order Schedule Name Type Priority Associated Diag noses 1 Occurrences starting 11/12/2021 until 05/12/2022 Ambulatory referral to Outpatient Routine Post-op pain Physical Therapy Referral documented as of this encounter Procedures Comments Procedure Name Priority Date/Time Associated Diag nosis WALKER BOOT TALL OR SHORT Routine 11/12/2021 Post -op pain 12:33 PM COMPLAINT ANALYST documented in this encounter Visit Diagnoses Diagnosis Post-op pain - Primary Other acute postoperative pain documented in this encounter Care Teams Start Date End Date Career Services Assistant Relationship Specialty 09/01/17 Brien Villalobos MD PCP - General Family Medicine documented as of this encounter
[2021-11-20] MEDS ORDERED: FAMOTIDINE 20MG/2ML IV (PEPCID) IVP ONE (02:45)
[2021-11-20] MEDS ORDERED: ONDANSETRON 4 MG/2 ML (SDV) Z0FRAN IVP ONE (03:00)
[2021-11-20 03:18] LABS: CALCIUM 8.7 MG/DL (8.5-10.1); CREATININE SERUM 1.2 MG/DL (0.60-1.30); MAGNESIUM 1.5 MG/DL (1.6-2.4); POTASSIUM 3.7 MMOL/L (3.6-5.0)
[2021-11-20 03:50] LABS: COLOR,URINE Y
[2021-11-20 03:51] LABS: BACTERIA,URINE MODERATE /HPF; BILIRUBIN,URINE NEGATIVE (NEGATIVE); CALCIUM OXALATE CRYSTALS,UR FEW /LPF; CLARITY,URINE CLEAR; GLUCOSE, URINE (UA) NEGATIVE (NEGATIVE); KETONES,URINE NEGATIVE (NEGATIVE); LEUKOCYTE ESTERASE ,URINE NEGATIVE (NEGATIVE); NITRITE,URINE NEGATIVE (NEGATIVE); PH,URINE 5.5 (5-9); PROTEIN,URINE 2+ (NEGATIVE); SQUAMOUS EPITHELIAL CELL,UR 0-2 /HPF
[2021-11-20 03:58] LABS: HEMATOCRIT 48 % (35-52); HEMOGLOBIN 16.1 g/dL (11.5-16.0); MEAN CORPUSCULAR HEMOGLOBIN 29 pg (25-34); MEAN CORPUSCULAR HGB CONC 34 g/dL (32-36); MEAN CORPUSCULAR VOLUME 87 fL (80-99); MEAN PLATELET VOLUME 9.1 fL (9.0-12.2); PLATELET COUNT 561 10^3/uL (130-400); WHITE BLOOD COUNT 22.9 10^3/uL (4.3-11.0)
[2021-11-20 03:59] LABS: BASOPHILS # (AUTO) 0.1 10^3/uL (0.0-0.1); EOSINOPHILS # (AUTO) 0.2 10^3/uL (0.0-0.3); EOSINOPHILS % (AUTO) 1 % (0-10); LYMPHOCYTES # (AUTO) 3.7 X 10^3 (1.0-4.0); LYMPHOCYTES % (AUTO) 16 % (12-44); MONOCYTES # (AUTO) 0.6 X 10^3 (0.0-1.0); MONOCYTES % (AUTO) 3 % (0-12); NEUTROPHILS # (AUTO) 18.2 X 10^3 (1.8-7.8); NEUTROPHILS % (AUTO) 80 % (42-75)
[2021-11-20] MEDS ORDERED: EPINEPHrine INJECTION 1 MG/ML AMP IM ONE (04:00)
[2021-11-20] MEDS ORDERED: MAGNESIUM 1 GM/100 ML IVPB 100 ML IV ONE (04:00)
--- NOTE | 2021-11-20 04:15 | ED General ---
General Chief Complaint: Dizziness/Syncope Stated Complaint: SYNCOPE Nursing Triage Note: Pt reports having a syncopal episode in the bathroom and hit left side of head. Pt reports she broke out in hives and had abd pain prior; seen in ED a few days ago. Pt denies c-spine tenderness. A&O x 4. Took unknown amount of children's Benadryl. Source of Information: Patient, EMS, Family, Old Records Exam Limitations: No Limitations History of Present Illness Date Seen by Provider: Nov 20, 2021 Time Seen by Provider: 02:22 Initial Comments This 31-year-old young lady presents to the emergency room with recurrent episodes of hives accompanied by abdominal discomfort, shortness of breath, nausea, diarrhea, and lightheadedness. She woke with symptoms around 0030. Symptoms began with itching and hives. She then became lightheaded and had a syncopal episode in the bathroom. She struck her forehead on some object. She has never had a syncopal episode with these events in the past but has been previously lightheaded. She reports these episodes seem to be getting worse wit h each occurrence. She was seen in this ER on July 18. The focus during that visit was on the GI symptoms. Symptoms seem to improve fairly rapidly with antihistamine and antacid therapies. She has not been able to identify a particular trigger. She has pending referrals to gastroenterology and an operations specialist. She took "a couple swigs" of liquid Benadryl at home before EMS picked her up. Allergies and Home Medications Allergies Coded Allergies: amoxicillin (Verified Allergy, Unknown, 11/17/21) cefaclor (Verified Allergy, Unknown, 11/17/21) chlorothiazide (Verified Allergy, Unknown, 11/17/21) clavulanic acid (Verified Allergy, Unknown, 11/17/21) sulfamethoxazole (Verified Allergy, Unknown, 11/17/21) trimethoprim (Verified Allergy, Unknown, 11/17/21) Patient Home Medication List Home Medication List Reviewed: Yes Dicyclomine HCl (Dicyclomine HCl) 20 Mg Tablet, 20 MG PO Q6H PRN for abdominal cramping/pain Prescribed by: HARISH MCCONNELL on 11/17/21 0619 Epinephrine (Epipen 2-Pratik) 0.3 Mg/0.3 Ml Auto.injct, 0.3 MG IJ UD Prescribed by: ASL CORNEJO on 11/20/21601 Famotidine (Pepcid) 20 Mg Tablet, 20 MG PO BID Prescribed by: SAL CORNEJO on 11/20/21601 Hyoscyamine Sulfate (Levsin-Sl) 0.125 Mg Tab.subl, 1-2 TAB SL Q4H PRN for CRAMPS Prescribed by: SAL CORNEJO on 11/20/21 06 Review of Systems Review of Systems Constitutional: weakness EENTM: see HPI Respiratory: see HPI Cardiovascular: see HPI Gastrointestinal: see HPI Genitourinary: no symptoms reported : No LMP: Nov 14, 2021 Musculoskeletal: no symptoms reported Skin: see HPI Psychiatric/Neurological: No Symptoms Reported Hematologic/Lymphatic: No Symptoms Reported Immunological/Allergic: see HPI Past Qvanlkq-Cnsjcv-Hgoefd Hx Patient Social History Tobacco Use?: No Use of E-Cig and/or Vaping dev: No Substance use?: No Alcohol Use?: No Pt feels they are or have been: No Immunizations Up To Date Influenza Vaccine Up-to-Date: No; Not Current First/Initial COVID19 Vaccinat: denies Past Medical History Surgeries: Yes Orthopedic (Right foot) Cardiac: No : No Last Menstrual Period: Nov 15, 2021 Genitourinary: No Gastrointestinal: No Musculoskeletal: No Endocrine: Yes (Hyperglycemia) Hypothyroidsim HEENT: No Cancer: No Psychosocial: Yes Integumentary: Yes (Hives) Physical Exam Vital Signs Vital Signs - First Documented 11/20/21 02:25 Temp 36.0 Pulse 111 Resp 18 B/P (MAP) 113/83 (93) Pulse Ox 99 O2 Delivery Room Air Capillary Refill : Less Than 3 Seconds Height, Weight, BMI Height: '" Weight: lbs. oz. kg; 58.00 BMI Method: General Appearance: WD/WN, Mild Distress, Obese HEENT: PERRL/EOMI, Pharynx Normal, Other (Mucous membranes somewhat dry. Facial edema and erythema noted. Mild swelling and tenderness of the left forehead from trauma.) Neck: Normal Inspection, Non Tender Respiratory: Lungs Clear, Normal Breath Sounds, No Accessory Muscle Use, No Respiratory Distress Cardiovascular: No Edema, No Murmur, Tachycardia (Mild) Gastrointestinal: Normal Bowel Sounds, Soft, Tenderness (Slight, generalized) Extremity: Normal Inspection, No Pedal Edema Neurologic/Psychiatric: Alert, Oriented x3, No Motor/Sensory Deficits, Normal Mood/Affect, supervisor fishing II-XII Norm as Tested Skin: Warm/Dry, Erythema, Rash (Generalized hives) Progress/Results/Core Measures Suspected Sepsis SIRS Temperature: Pulse: 111 Respiratory Rate: 18 Laboratory Tests 11/20/21 02:45: White Blood Count 22.9H Blood Pressure 113 /83 Mean: 94 Laboratory Tests 11/20/21 02:45: Creatinine 1.20, Platelet Count 561H Results/Orders Lab Results Laboratory Tests Test 11/20/21 02:45 11/20/21 03:27 Range/Units White Blood Count 22.9 H 4.3-11.0 10^3/uL Red Blood Count 5.55 H 3.80-5.11 10^6/uL Hemoglobin 16.1 H 11.5-16.0 g/dL Hematocrit 48 35-52 % Mean Corpuscular Volume 87 80-99 fL Mean Corpuscular Hemoglobin 29 25-34 pg Mean Corpuscular Hemoglobin Concent 34 32-36 g/dL Red Cell Distribution Width 12.1 10.0-14.5 % Platelet Count 561 H 130-400 10^3/uL Mean Platelet Volume 9.1 9.0-12.2 fL Immature Granulocyte % (Auto) 0 % Neutrophils (%) (Auto) 80 H 42-75 % Lymphocytes (%) (Auto) 16 12-44 % Monocytes (%) (Auto) 3 0-12 % Eosinophils (%) (Auto) 1 0-10 % Basophils (%) (Auto) 1 0-10 % Neutrophils # (Auto) 18.2 H 1.8-7.8 X 10^3 Lymphocytes # (Auto) 3.7 1.0-4.0 X 10^3 Monocytes # (Auto) 0.6 0.0-1.0 X 10^3 Eosinophils # (Auto) 0.2 0.0-0.3 10^3/uL Basophils # (Auto) 0.1 0.0-0.1 10^3/uL Immature Granulocyte # (Auto) 0.1 0.0-0.1 10^3/uL Neutrophils % (Manual) 70 % Lymphocytes % (Manual) 9 % Monocytes % (Manual) 5 % Eosinophils % (Manual) 1 % Band Neutrophils 6 % Atypical Lymphocytes 9 % Toxic Granulation 2+ Platelet Estimate GIANTS SEEN Microcytosis SLIGHT Sodium Level 138 135-145 MMOL/L Potassium Level 3.7 3.6-5.0 MMOL/L Chloride Level 104 98-107 MMOL/L Carbon Dioxide Level 17 L 21-32 MMOL/L Anion Gap 17 H 5-14 MMOL/L Blood Urea Nitrogen 20 H 7-18 MG/DL Creatinine 1.20 0.60-1.30 MG/DL Estimat Glomerular Filtration Rate 52 BUN/Creatinine Ratio 17 Glucose Level 313 H 70-105 MG/DL Calcium Level 8.7 8.5-10.1 MG/DL Magnesium Level 1.5 L 1.6-2.4 MG/DL C-Reactive Protein 0.31 <0.50 MG/DL Urine Color Y Urine Clarity CLEAR Urine pH 5.5 5-9 Urine Specific [place] >=1.030 1.016-1.022 Urine Protein 2+ H NEGATIVE Urine Glucose (UA) NEGATIVE NEGATIVE Urine Ketones NEGATIVE NEGATIVE Urine Nitrite NEGATIVE NEGATIVE Urine Bilirubin NEGATIVE NEGATIVE Urine Urobilinogen 0.2 < = 1.0 MG/DL Urine Leukocyte Esterase NEGATIVE NEGATIVE Urine RBC (Auto) 2+ H NEGATIVE Urine RBC 5-10 H /HPF Urine WBC 2-5 /HPF Urine Squamous Epithelial Cells 0-2 /HPF Urine Crystals PRESENT H /LPF Urine Calcium Oxalate Crystals FEW H /LPF Urine Bacteria MODERATE H /HPF Urine Casts PRESENT /LPF Urine Hyaline Casts 10-25 H /LPF Urine Mucus MODERATE H /LPF Urine Culture Indicated YES My Orders Orders - SAL ARMANDO MD Famotidine Injection (Pepcid Injection) (11/20/21 02:45) Basic Metabolic Panel (11/20/21 02:45) Magnesium (11/20/21 02:45) Ua Culture If Indicated (11/20/21 02:45) Ondansetron Injection (Zofran Injectio (11/20/21 03:00) Crp Fs (11/20/21 02:45) Cbc With Automated Diff (11/20/21 03:50) Epinephrine 1 Mg Injection (Adrenalin I (11/20/21 04:00) Urine Culture (11/20/21 03:27) Magnesium 1 Gm/100 Ml Ivpb (Magnesium Multani (11/20/21 04:00) Manual Differential (11/20/21 02:45) Smear For Path Review (11/20/21 04:28) Hyoscyamine Sl Tablet (Levsin Sl Tablet) (11/20/21 05:30) Medications Given in ED Current Medications Medications Dose Ordered Sig/Denisse Route Start Time Stop Time Status Last Admin Dose Admin Epinephrine HCl 0.3 mg ONCE ONCE IM 11/20/21 04:00 11/20/21 04:01 DC 11/20/21 03:58 0.3 MG Famotidine 20 mg ONCE ONCE IVP 11/20/21 02:45 11/20/21 02:46 DC 11/20/21 02:53 20 MG Hyoscyamine Sulfate 0.25 mg ONCE ONCE SL 11/20/21 05:30 11/20/21 05:31 DC 11/20/21 05:40 0.25 MG Magnesium Sulfate/ Dextrose 100 ml @ 100 mls/hr ONCE ONCE IV 11/20/21 04:00 11/20/21 05:00 DC 11/20/21 03:59 100 MLS/HR Ondansetron HCl 8 mg ONCE ONCE IVP 11/20/21 03:00 11/20/21 03:01 DC 11/20/21 02:53 8 MG Vital Signs/I&O 11/20/21 11/20/21 11/20/21 11/20/21 02:25 03:15 04:10 05:15 Temp 36.0 Pulse 111 92 100 89 Resp 18 18 20 16 B/P (MAP) 113/83 (93) 114/84 118/73 122/89 Pulse Ox 99 97 95 97 O2 Delivery Room Air Room Air Room Air Room Air Capillary Refill : Less Than 3 Seconds Blood Pressure Mean: 94 Progress Note #1: Time: 04:21 Progress Note She received a liter of IV fluid and Pepcid in addition to the Benadryl she took at home. Zofran was given for nausea. Hives have improved but she is still having abdominal discomfort and cramping. She has not had any further diarrhea. It is possible the GI component could be related to abdominal angioedema. We are trialing a dose of IM epinephrine. Hyperglycemia was noted on the last visit and again today. In the absence of steroid use, this likely represents new diagnosis of diabetes. Progress Note #2: Time: 05:23 Progress Note Hives, swelling, and itching have nearly resolved. The epinephrine injection did not seem to have a significant impact on her symptoms. Specifically, epinephrine did not resolve her abdominal discomfort or cramping. We discussed using Levsin as a treatment for her bowel spasming as this may be a quick and efficient way to treat cramping at home if she has further episodes. She would like to try a dose of Levsin here. Pancytosis was noted on her CBC during both ER visits. I have discussed this with Dr. Liz. He and I interviewed the patient together to collect more information. Given the episodic nature of these events and patient's history of severe allergies in her youth, it seems more likely that the cell count abnormalities are secondary to rapid fluid shift from third spacing of fluid, diuresis from hyperglycemia, and dumping of fluid through her diarrhea, rather than a primary neoplasm or myeloproliferative disorder. A peripheral smear is being sent to lab for further evaluation in [place] to evaluate this issue further. Dr. Liz recommends an expedited referral to an banquet stewardess and focusing on treatment of allergies and anaphylaxis as well as logging all possible exposures within a 24-hour period of events. The patient and I discussed the syncopal episode at length. Because it occurred during intense abdominal cramping, the syncope may have been related to vasovagal response rather than anaphylaxis. The exact etiology remains a mystery at this time. Progress Note #3: Time: 06:23 Progress Note Lynda is feeling relatively well and stable to go home. Levsin was moderately helpful in reducing cramping. A prescription will be provided. See discharge instructions for more discussion. ECG Initial ECG Impression: 3rd Degree AV Block Departure Impression Primary Impression: Urticaria Additional Impressions: Syncope Qualified Codes: R55 - Syncope and collapse Intestinal cramps Diarrhea Qualified Codes: R19.7 - Diarrhea, unspecified Pancytosis Hyperglycemia Disposition: 01 HOME, SELF-CARE Condition: Improved Departure-Patient Inst. Decision time for Depature: 06:23 Referrals: NO,LOCAL PHYSICIAN (PCP/Family) Primary Care Physician Patient Instructions: Anaphylaxis, Syncope (Fainting), Vasovagal Response (DC), Nocturnal (Nighttime) Leg Cramps (DC) Add. Discharge Instructions: 1. Hives and anaphylaxis - Continue taking Zyrtec (cetirizine) 10 mg daily. Additionally take Pepcid (famotidine) 20 mg twice daily. These long-acting antihistamines should help prevent severe episodes of hives and anaphylaxis. Ke ep Benadryl (diphenhydramine) with you at all times. Take 50 mg at the first sign of hives or significant allergic reaction. The chewable or liquid forms may be absorbed into your system faster and may be more rapidly effective. Also carry an EpiPen with you at all times. If you have a severe reaction that includes symptoms of shortness of breath, swelling of the mouth or airway, l ightheadedness, rapid heart rate, or other severe symptoms, use the EpiPen immediately and present to an emergency room or call 911. It is recommended that you have an expedited evaluation by an banquet stewardess. Please work with your primary care provider to expedite this referral. Keep a detailed log of foods, beverages, environmental exposures, products or chemicals used, medications, and places visited in the 24 hours prior to each future episode. This will help identify any possible triggers of your episodes. 2. High blood sugar - Your high blood sugar may represent a new diagnosis of diabetes. Eat a low sugar, low carbohydrate diet. Your primary care provider may wish to obtain a hemoglobin A1c to help determine if your high blood sugar is related to the episodes for which you were seen in the ER or if these high blood sugars truly represent diabetes. 3. Syncope (passing out) - It is unclear whether your syncopal episode was due to a vasovagal reaction or anaphylaxis or some other cause. If you feel impendin g syncope in the future, please get to a safe place immediately and sit or lie down. If this seems associated with allergic reaction or hives, take the EpiPen and Benadryl and get to an emergency room as soon as possible. Drink plenty of clear liquids to stay well-hydrated. 4. Bowel cramping and diarrhea - You may try sublingual Levsin (hyoscyamine) for rapid relief of bowel cramping and diarrhea. 5. High cell counts (pancytosis) - A peripheral smear of your blood is being analyzed in the [facility] lab. Please review the results of this report with your primary care provider when it becomes available. Depending on the res ults, you may need consultation with a meat market manager. Also work with your primary care provider to obtain another CBC specimen when you are at least few days out from an acute episodes of hives and diarrhea. This specimen can be used for comparison of your baseline values with the values you have during an episode. 6. call with questions or concerns. Return to the ER if you have any worsening of symptoms. All discharge instructions reviewed with patient and/or family. Voiced understanding. Scripts Hyoscyamine Sulfate (Levsin-Sl) 0.125 Mg Tab.subl 1-2 TAB SL Q4H PRN for CRAMPS, #10 TAB 0 Refills Prov: SAL ARMANDO MD 11/20/21 Epinephrine (Epipen 2-Pratik) 0.3 Mg/0.3 Ml Auto.injct 0.3 MG IJ UD, #1 ML Prov: SAL ARMANDO MD 11/20/21 Famotidine (Pepcid) 20 Mg Tablet 20 MG PO BID, #60 TAB Prov: SAL ARMANDO MD 11/20/21 SAL ARMANDO MD Nov 20, 2021 04:15
[2021-11-20 04:36] LABS: BAND NEUTROPHILS 6 %; BASOPHILS % (AUTO) 1 % (0-10); EOSINOPHILS % (MANUAL) 1 %; LYMPHOCYTES % (MANUAL) 9 %; MONOCYTES % (MANUAL) 5 %; NEUTROPHILS % (MANUAL) 70 %
[2021-11-20 04:37] LABS: ATYPICAL LYMPHOCYTES 9 %; MICROCYTOSIS SLIGHT; PLATELET ESTIMATE GIANTS SEEN; TOXIC GRANULATION/VACUOLAZATIO 2+
[2021-11-20] MEDS ORDERED: HYOSCYAMINE 0.125 MG (LEVSIN) TAB SL ONE (05:30)
[2021-11-20] MEDS ORDERED: FAMO-119 PO (06:02)
[2021-11-20] MEDS ORDERED: EPIN0.3P3 IJ (06:02)
[2021-11-20] MEDS ORDERED: HYOS0.1283 SL (06:25)
[2021-11-20 15:30] LABS: ABSOLUTE RETIC # 112 10e9/uL (24-90); RETICULOCYTE % 2.02 % (0.50-2.40)
== END 2021-11-20 06:39 | disposition home or self-care (01) ==
LOC: EDUNIT# 02:20 → ER FS 02:22
DX: L50.9 Urticaria, unspecified (principal); R55 Syncope and collapse; R10.9 Unspecified abdominal pain; R19.7 Diarrhea, unspecified; D61.818 Other pancytopenia; R73.9 Hyperglycemia, unspecified; E66.9 Obesity, unspecified; Z68.43 Body mass index [BMI] 50.0-59.9, adult
CPT/HCPCS: 36415; 80048; 81000; 83735; 85007; 85027; 85045; 85055; 86141; 87088

== ENCOUNTER 2022-01-31 14:45 | Emergency (ER) | payer BC ==
[~2022-01-31] VITALS: Ht 162.6 cm; Wt 108.0 kg
[~2022-01-31 14:45] MED LIST changes: +EPIN0.3P3 IJ; +FAMO-119 PO; +HYOS0.1283 SL
[2022-01-31 15:13] VITALS: BP 157/87
--- NOTE | 2022-01-31 15:43 | ED General ---
General Chief Complaint: Allergic Reaction Stated Complaint: ALLERGIC REACTION - COUGH Nursing Triage Note: PT AMB TO FT 2 W REPORTS OF POSS ANAPHYLAXIS AT APPROX 1430 WHILE EATING A CHICKEN TACO AND BEANS D/T ALPHA GAL ALLERGY. PT REPORTS SHE BEGAN COUGHING AND FEELING WEIRD AND ADMIN EPI PEN. PT TO ED W/O SYMPTOMS, HERE FOR EPI PEN ADMINISTRATION. PT REPORTS SHE IS POSS . A&OX4, DENIES PAIN. Source of Information: Patient Exam Limitations: No Limitations History of Present Illness Date Seen by Provider: Jan 31, 2022 Time Seen by Provider: 15:39 Initial Comments To ER by private vehicle with reports of a episode of shortness of breath, coughing, rhinorrhea. This began shortly after eating some chicken tacos. History of alpha gal syndrome. She is on daily Pepcid, nightly Unisom, daily antihistamine and she has prednisone available at home and epinephrine at home. She did give herself an epinephrine injection intramuscularly at the onset of the symptoms with very quick resolution of the symptoms shortly thereafter. At this time she is asymptomatic. That was about 230 when this happened. Timing/Duration: 1-3 Hours Severity: Moderate Associated Systoms: Denies Symptoms Allergies and Home Medications Allergies Coded Allergies: amoxicillin (Verified Allergy, Unknown, 11/17/21) cefaclor (Verified Allergy, Unknown, 11/17/21) chlorothiazide (Verified Allergy, Unknown, 11/17/21) clavulanic acid (Verified Allergy, Unknown, 11/17/21) sulfamethoxazole (Verified Allergy, Unknown, 11/17/21) trimethoprim (Verified Allergy, Unknown, 11/17/21) Patient Home Medication List Home Medication List Reviewed: Yes Dicyclomine HCl (Dicyclomine HCl) 20 Mg Tablet, 20 MG PO Q6H PRN for abdominal cramping/pain Prescribed by: HARISH MCCONNELL on 11/17/21 0619 Epinephrine (Epipen 2-Pratik) 0.3 Mg/0.3 Ml Auto.injct, 0.3 MG IJ UD Prescribed by: SAL CORNEJO on 11/20/21 06 Famotidine (Pepcid) 20 Mg Tablet, 20 MG PO BID Prescribed by: SAL CORNEJO on 11/20/21 06 Hyoscyamine Sulfate (Levsin-Sl) 0.125 Mg Tab.subl, 1-2 TAB SL Q4H PRN for CRAMPS Prescribed by: SAL CORNEJO on 11/20/21 0625 Review of Systems Review of Systems Constitutional: see HPI EENTM: see HPI, nose congestion Respiratory: see HPI, cough Cardiovascular: no symptoms reported Genitourinary: no symptoms reported Musculoskeletal: no symptoms reported Skin: no symptoms reported Psychiatric/Neurological: No Symptoms Reported Hematologic/Lymphatic: No Symptoms Reported Past Dyvpnho-Pucotq-Pujiwq Hx Patient Social History Tobacco Use?: No Use of E-Cig and/or Vaping dev: No Substance use?: No Alcohol Use?: No Immunizations Up To Date Influenza Vaccine Up-to-Date: No; Not Current First/Initial COVID19 Vaccinat: denies Second COVID19 Vaccination Jaspreet: denies Third COVID19 Vaccination Date: denies Past Medical History Surgery/Hospitalization HX: ALPHA GAL Surgeries: Yes Orthopedic Cardiac: No Genitourinary: No Gastrointestinal: No Musculoskeletal: No Endocrine: Yes (Hyperglycemia) Hypothyroidsim HEENT: No Cancer: No Psychosocial: Yes Integumentary: Yes (Hives) Physical Exam Vital Signs Vital Signs - First Documented 01/31/22 15:13 Temp 36.7 Pulse 90 Resp 20 B/P (MAP) 157/87 (110) Pulse Ox 99 O2 Delivery Room Air Capillary Refill : Less Than 3 Seconds Height, Weight, BMI Height: '" Weight: lbs. oz. kg; 40.00 BMI Method: General Appearance: No Apparent Distress, WD/WN, Other (Alert and oriented very pleasant. Hemodynamically stable. She is without symptoms at this point.) Eyes: Bilateral Eye Normal Inspection, Bilateral Eye PERRL, Bilateral Eye EOMI HEENT: PERRL/EOMI, TMs Normal Neck: Full Range of Motion, Normal Inspection Respiratory: Normal Breath Sounds, No Accessory Muscle Use, No Respiratory Distress Cardiovascular: Regular Rate, Rhythm, Normal Peripheral Pulses Gastrointestinal: Normal Bowel Sounds, Non Tender, Soft Extremity: Normal Capillary Refill, Normal Inspection Neurologic/Psychiatric: Alert, Oriented x3 Skin: Normal Color, Warm/Dry Progress/Results/Core Measures Suspected Sepsis SIRS Temperature: Pulse: 90 Respiratory Rate: 20 Blood Pressure 157 /87 Mean: 110 Results/Orders My Orders Orders - KATIUSKA DAN APRN Urine Bedside (01/31/22 15:34) Vital Signs/I&O 01/31/22 15:13 Temp 36.7 Pulse 90 Resp 20 B/P (MAP) 157/87 (110) Pulse Ox 99 O2 Delivery Room Air Capillary Refill : Less Than 3 Seconds Blood Pressure Mean: 110 Departure Communication (Admissions) 1555-I did discuss with her the possibility of a biphasic reaction and the second peak of this occurring within a few hours. I offered to watch her here in the emergency room for a couple of hours though she seems to have a good handle on her allergic reaction symptoms, has adequate supply of medications at home including additional epinephrine pens and prednisone as well as antihistamines. She is asymptomatic now. She prefer to go on home and that seems reasonable given her demonstrated ability to manage this. Impression Primary Impression: History of alpha gal allergy Additional Impression: Allergic reaction Disposition: 01 HOME, SELF-CARE Condition: Stable Departure-Patient Inst. Decision time for Depature: 15:43 Referrals: NO,LOCAL PHYSICIAN (PCP/Family) Primary Care Physician Patient Instructions: Food Allergy Add. Discharge Instructions: 1. Return to ER for any concerns or worsening symptoms. Continue to manage symptoms just as you have done today All discharge instructions reviewed with patient and/or family. Voiced unders chris. KATIUSKA DAN APRN Jan 31, 2022 15:43
== END 2022-01-31 15:54 | disposition home or self-care (01) ==
LOC: EDUNIT# 14:45 → ER 14:46
DX: T78.40XA Allergy, unspecified, initial encounter (principal); Z91.018 Allergy to other foods
CPT/HCPCS: 99282